=== PATIENT | male | born 1965 | race Caucasian/White ===

== ENCOUNTER 2018-05-18 19:51 | Inpatient (IN) | payer MEDICARE, MEDICAID ==
--- NOTE | 2018-05-18 20:39 | ED Physician Chart ---
ED Chief Complaint/HPI - Patient Information Date Seen:: 05/18/18 Time Seen:: 20:00 Chief Complaint:: agitation History of Present Illness:: 52 yr old male who was bib paramedics with agitation from senior living and was smearing stool over the mi pt minimally verbal previous stroke with contracted rue Vitals:: Vital Signs - 8 hr 05/18/18 20:00 Temp 97.7 F HR 79 RR 18 BP 124/77 O2 Sat % 94 Historian:: EMS, Medical Records ED Review of Systems - Review of Systems Eyes: No loss of vision Neck: No neck pain Cardio Vascular: No chest pain Pulmonary: No SOB GI: No vomiting Musculoskeletal: No back pain Psychiatric: Prior psych history (contracture RUE), Anxiety Hematopoietic: No bruising Allergic/Immuno: No urticaria Neurological: No syncope ED Past Medical History - Past Medical History Past Medical History: Other (SEE PREVIOUS NOTES) ED Physical Exam - Physical Examination General/Constitutional: No distress Skin: No rash Respiratory: Nl effort/Exclusion Cardio Vascular: RRR GI: No tenderness/rebounding/guarding Extremities: No tenderness or effusion ED Assessment - Assessment General Assessment: AGITATION PSYCHOSIS FOR ADMISSION ED Septic Shock - . Is Septic Shock (SBP<90, OR Lactate>4 mmol\L) present?: No - <6hrs of presentation: Vital Signs: Vital Signs - 8 hr 05/18/18 20:00 Temp 97.7 F HR 79 RR 18 BP 124/77 O2 Sat % 94 ED Reassessment (Disposition) - Reassessment Reassessment Condition:: Unchanged - Diagnosis Diagnosis:: PSYCHOSIS - Patient Disposition Discharge/Transfer:: Acute Care w/in this hosp
[2018-05-18 21:39] LABS: % BASOPHILS 0.4 % (0.0-2.0); % EOSINOPHILS 1.8 % (0.0-5.0); % LYMPHOCYTES 26.9 % (20.0-50.0); % MONOCYTES 7.5 % (2.0-10.0); % NEUTROPHILS 63.4 % (40.0-80.0); EOSINOPHILE ABSOLUTE 0.1 Th/cmm (0.1-0.4); HEMATOCRIT 44.9 % (41.0-60); HEMOGLOBIN 14.8 gm/dL (12-16); LYMPHOCYTE ABSOLUTE 2.2 Th/cmm (1.5-3.0); MEAN CELL VOLUME 89.4 fl (80-99); MEAN CORPUSCULAR HEMOGLOBIN 29.4 pg (26.0-30.0); MEAN CORPUSCULAR HGB CONC 32.9 pg (28.0-36.0); MEAN PLATELET VOLUME 7.9 fl; MONOCYTE ABSOLUTE 0.6 Th/cmm (0.3-1.0); NEUTROPHILE ABSOLUTE 5.4 Th/cmm (1.8-8.0); PLATELET COUNT 243 Th/cmm (150-400); RED BLOOD COUNT 5.02 Mil/cmm (4.30-5.70); RED CELL DISTRIBUTION WIDTH 13.2 % (11.5-20.0); WHITE BLOOD COUNT 8.3 Th/cmm (4.8-10.8)
[2018-05-18 21:54] LABS: ALB/GLOB RATIO 1.6 (1.0-1.8); ALBUMIN 4.2 gm/dL (4.2-5.5); ALKALINE PHOSPHATASE 140 U/L (34-104); ANION GAP 12.3 (7.0-16.0); BILIRUBIN,TOTAL 0.4 mg/dL (0.3-1.0); BUN - UREA NITROGEN 14 mg/dL (7-25); CALCIUM SERUM 9.3 mg/dL (8.6-10.3); CARBON DIOXIDE 22.6 mEq/L (21.0-31.0); CHLORIDE 108 mEq/L (98-107); CREATININE - SERUM 0.9 mg/dL (0.7-1.3); GFR AFRICAN-AMERICAN > 60.0 ml/min (>90); GFR NON AFRICAN-AMERICAN > 60.0 ml/min; GLUCOSE 99 mg/dL (70-105); POTASSIUM SERUM 3.9 mEq/L (3.5-5.1); SGOT 14 U/L (13-39); SGPT/ALT 6 U/L (7-52); SODIUM SERUM 139 mEq/L (136-145); TOTAL PROTEIN,SERUM 6.8 gm/dL (6.0-8.3)
[2018-05-18 23:44] VITALS: BP 120/78
[2018-05-18] MEDS ORDERED: Magnesium Hydroxide (MOM) 30 mL UDC PO PRN (23:44)
[2018-05-19] MEDS ORDERED: Polyvinyl Alcohol Ophth Soln 15 mL Bottle EACH EYE PRN (00:22)
[2018-05-19] MEDS: Multivitamin w/ Minerals Tab PO SCH (09:13)
--- NOTE | 2018-05-19 09:47 | Diagnostic Imaging Report ---
Exam: Portable chest x-ray HISTORY: Shortness of breath Exam is: None Findings: Portable examination of chest at 2117 hours reviewed. The study demonstrates left basilar atelectasis early infiltrate cannot be excluded. The costophrenic angles are clear bony thorax intact. Mediastinal structures midline. Impression: Left basilar atelectasis, question early infiltrate follow-up exam is recommended.
--- NOTE | 2018-05-19 14:18 | History & Physical ---
ADMIT DATE: 05/19/2018 HISTORY OF PRESENT ILLNESS: This is a 52-year-old male who was admitted from shelter facility to the Emergency Room due to increased agitation and smearing of feces to the staffs in the facility. REVIEW OF SYSTEMS: GENERAL: This is a 52-year-old male that appears as stated, no fever, no chills. HEENT: Head: No headache. No dizziness. Eyes: No eye pain. No visual loss. NECK: No neck pain. No nuchal rigidity. CHEST: No chest pain. No palpitation. PULMONARY: No shortness of breath. No coughing. GASTROINTESTINAL: No diarrhea. No vomiting. No constipation. MUSCULOSKELETAL: No joint pain or back pain. SOCIAL HISTORY: The patient lives in a shelter facility prior to hospitalization. PAST MEDICAL HISTORY: Includes Parkinson disease, vitamin D deficiency, gastroesophageal reflux disease, hyperlipidemia, history of CVA. FAMILY HISTORY: Unremarkable. PAST SURGICAL HISTORY: Unremarkable. PSYCHIATRIC HISTORY: Includes anxiety. PHYSICAL EXAMINATION: VITAL SIGNS: Temperature 98, heart rate 75, blood pressure 120/78, respiration of 18, 98% on room air. HEENT: Head is atraumatic, normocephalic. Eyes: Bilateral conjunctivae are clear. Bilateral pupils equal, round and reactive. NECK: Supple. No JVD. CARDIOVASCULAR: S1 and S2, without murmur. PULMONARY: Clear to auscultation. GASTROINTESTINAL: Soft and nontender without guarding. Positive bowel sounds. MUSCULOSKELETAL: No clubbing. No cyanosis noted. The patient has a contracted right upper extremity noted. ASSESSMENT: 1. Psychosis. 2. Parkinson disease. 3. Vitamin D deficiency. 4. Gastroesophageal reflux disease. 5. Hyperlipidemia. 6. Insomnia. PLAN: We will keep the patient in senior mental health unit. We will follow up with a psychiatrist to monitor the patient's condition and behavior. Treatment plans were discussed with the patient's nurse. Treatment plans were discussed with Dr. Bee. JOB# [id number]
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
[2018-05-20] MEDS: Multivitamin w/ Minerals Tab PO SCH (09:16)
--- NOTE | 2018-05-20 11:18 | General Progress Note ---
Subjective - Review of Systems Events since last encounter: patient awake and confused irritable no fever , no pain Objective - Results Result Diagrams: 05/18/18 21:20 05/18/18 21:20 Recent Labs: Laboratory Last Values WBC 8.3 Th/cmm (4.8-10.8) 05/18/18 21:20 RBC 5.02 Mil/cmm (4.30-5.70) 05/18/18 21:20 Hgb 14.8 gm/dL (12-16) 05/18/18 21:20 Hct 44.9 % (41.0-60) 05/18/18 21:20 MCV 89.4 fl (80-99) 05/18/18 21:20 MCH 29.4 pg (26.0-30.0) 05/18/18 21:20 MCHC Differential 32.9 pg (28.0-36.0) 05/18/18 21:20 RDW 13.2 % (11.5-20.0) 05/18/18 21:20 Plt Count 243 Th/cmm (150-400) 05/18/18 21:20 MPV 7.9 fl 05/18/18 21:20 Neutrophils % 63.4 % (40.0-80.0) 05/18/18 21:20 Lymphocytes % 26.9 % (20.0-50.0) 05/18/18 21:20 Monocytes % 7.5 % (2.0-10.0) 05/18/18 21:20 Eosinophils % 1.8 % (0.0-5.0) 05/18/18 21:20 Basophils % 0.4 % (0.0-2.0) 05/18/18 21:20 Sodium 139 mEq/L (136-145) 05/18/18 21:20 Potassium 3.9 mEq/L (3.5-5.1) 05/18/18 21:20 Chloride 108 mEq/L (98-107) H 05/18/18 21:20 Carbon Dioxide 22.6 mEq/L (21.0-31.0) 05/18/18 21:20 Anion Gap 12.3 (7.0-16.0) 05/18/18 21:20 BUN 14 mg/dL (7-25) 05/18/18 21:20 Creatinine 0.9 mg/dL (0.7-1.3) 05/18/18 21:20 Est GFR ( Amer) > 60.0 ml/min (>90) 05/18/18 21:20 Est GFR (Non-Af Amer) > 60.0 ml/min 05/18/18 21:20 BUN/Creatinine Ratio 15.6 05/18/18 21:20 Glucose 99 mg/dL (70-105) 05/18/18 21:20 Calcium 9.3 mg/dL (8.6-10.3) 05/18/18 21:20 Total Bilirubin 0.4 mg/dL (0.3-1.0) 05/18/18 21:20 AST 14 U/L (13-39) 05/18/18 21:20 ALT 6 U/L (7-52) L 05/18/18 21:20 Alkaline Phosphatase 140 U/L (34-104) H 05/18/18 21:20 Total Protein 6.8 gm/dL (6.0-8.3) 05/18/18 21:20 Albumin 4.2 gm/dL (4.2-5.5) 05/18/18 21:20 Globulin 2.6 gm/dL 05/18/18 21:20 Albumin/Globulin Ratio 1.6 (1.0-1.8) 05/18/18 21:20 - Physical Exam Vitals and I&O: Vital Signs Temp 97.4 F 05/19/18 17:30 Pulse 76 05/19/18 17:30 Resp 18 05/19/18 19:37 BP 102/82 05/19/18 17:30 Pulse Ox 95 05/19/18 17:30 Intake & Output 05/19/18 05/20/18 05/20/18 18:59 06:59 18:59 Intake Total 1200 Balance 1200 Intake: Oral 1200 Other: # Voids 3 # Bowel Movements 1 Active Medications: Current Medications Acetaminophen (Tylenol) 650 mg PO Q6H PRN PRN Reason: Pain (Mild) Stop: 07/17/18 23:43 Amantadine HCl (Symmetrel) 100 mg PO TID [facility] Stop: 07/18/18 08:59 Last Admin: 05/20/18 09:16 Dose: 100 mg Artificial Tears (Artificial Tears Ophth Soln) 1 drop EACH EYE DAILY PRN PRN Reason: Dry Eye Stop: 07/18/18 00:21 Carbidopa/Levodopa (Sinemet 25mg-100 Mg) 1 tab PO TID [facility] Stop: 07/18/18 08:59 Last Admin: 05/20/18 09:16 Dose: 1 tab Cholecalciferol (Vitamin D3) 1,000 iu PO DAILY [facility]STIE Stop: 07/18/18 08:59 Last Admin: 05/20/18 09:16 Dose: 1,000 iu Docusate Sodium (Colace) 100 mg PO BID [facility] Stop: 07/18/18 08:59 Last Admin: 05/20/18 09:16 Dose: 100 mg Famotidine (Pepcid) mg PO AC [facility] Stop: 07/18/18 07:29 Lorazepam (Ativan) 0.5 mg PO Q6HR PRN; Protocol PRN Reason: Agitation Stop: 07/18/18 00:02 Magnesium Hydroxide (Milk Of Magnesia) 30 ml PO DAILY PRN PRN Reason: Constipation Stop: 07/17/18 23:43 Senna (Senna) 8.6 mg PO BID [facility] Stop: 07/18/18 08:59 Last Admin: 05/20/18 09:16 Dose: 8.6 mg Simvastatin (Zocor) 20 mg PO DAILY [facility]; Protocol Stop: 07/18/18 08:59 Last Admin: 05/20/18 09:16 Dose: 20 mg Tolterodine Tartrate (Detrol) 1 mg PO BID [facility] Stop: 07/18/18 08:59 Last Admin: 05/20/18 09:15 Dose: 1 mg Trazodone HCl (Desyrel) mg PO HS [facility]; Protocol Stop: 07/18/18 20:59 Zolpidem Tartrate (Ambien) 5 mg PO HS PRN PRN Reason: Insomnia Stop: 07/18/18 00:01 General: No acute distress HEENT: Atraumatic Neck: Supple Cardiovascular: Regular rate, Normal S1, Normal S2 Lungs: Clear to auscultation Abdomen: Bowel sounds Assessment/Plan - Problem List Patient Problems: All Active Problems GERD (gastroesophageal reflux disease) (Acute) K21.9 Hyperlipidemia (Acute) E78.5 Insomnia (Acute) G47.00 Parkinson disease (Acute) G20 Psychosis (Acute) F29 Vitamin D deficiency (Acute) E55.9 - Assessment Assessment: as per psych will monitor
--- NOTE | 2018-05-20 19:43 | Progress Notes ---
DATE: 05/20/2018 SUBJECTIVE: Staff was spoken to. The patient is interviewed. Mood is noted to be irritable. Affect is constricted. Coping skills are noted to be very poor. The patient has been getting easily frustrated and agitated. The patient could be redirected at this time. Aggressive behavior and the disruptive behavior that was displayed at the shelter is not evident at this time. The patient is going to be closely monitored and the patient's family is going to be kept informed about the patient's behavior. ASSESSMENT: The patient is still impulsive. PLAN: To continue the patient with the supportive therapy and followup. JOB# [id number]
[2018-05-21] MEDS: Multivitamin w/ Minerals Tab PO SCH (09:30)
--- NOTE | 2018-05-21 16:19 | General Progress Note ---
Subjective - Review of Systems Events since last encounter: patient awake confused Objective - Results Result Diagrams: 05/18/18 21:20 05/18/18 21:20 Recent Labs: Laboratory Last Values WBC 8.3 Th/cmm (4.8-10.8) 05/18/18 21:20 RBC 5.02 Mil/cmm (4.30-5.70) 05/18/18 21:20 Hgb 14.8 gm/dL (12-16) 05/18/18 21:20 Hct 44.9 % (41.0-60) 05/18/18 21:20 MCV 89.4 fl (80-99) 05/18/18 21:20 MCH 29.4 pg (26.0-30.0) 05/18/18 21:20 MCHC Differential 32.9 pg (28.0-36.0) 05/18/18 21:20 RDW 13.2 % (11.5-20.0) 05/18/18 21:20 Plt Count 243 Th/cmm (150-400) 05/18/18 21:20 MPV 7.9 fl 05/18/18 21:20 Neutrophils % 63.4 % (40.0-80.0) 05/18/18 21:20 Lymphocytes % 26.9 % (20.0-50.0) 05/18/18 21:20 Monocytes % 7.5 % (2.0-10.0) 05/18/18 21:20 Eosinophils % 1.8 % (0.0-5.0) 05/18/18 21:20 Basophils % 0.4 % (0.0-2.0) 05/18/18 21:20 Sodium 139 mEq/L (136-145) 05/18/18 21:20 Potassium 3.9 mEq/L (3.5-5.1) 05/18/18 21:20 Chloride 108 mEq/L (98-107) H 05/18/18 21:20 Carbon Dioxide 22.6 mEq/L (21.0-31.0) 05/18/18 21:20 Anion Gap 12.3 (7.0-16.0) 05/18/18 21:20 BUN 14 mg/dL (7-25) 05/18/18 21:20 Creatinine 0.9 mg/dL (0.7-1.3) 05/18/18 21:20 Est GFR ( Amer) > 60.0 ml/min (>90) 05/18/18 21:20 Est GFR (Non-Af Amer) > 60.0 ml/min 05/18/18 21:20 BUN/Creatinine Ratio 15.6 05/18/18 21:20 Glucose 99 mg/dL (70-105) 05/18/18 21:20 Calcium 9.3 mg/dL (8.6-10.3) 05/18/18 21:20 Total Bilirubin 0.4 mg/dL (0.3-1.0) 05/18/18 21:20 AST 14 U/L (13-39) 05/18/18 21:20 ALT 6 U/L (7-52) L 05/18/18 21:20 Alkaline Phosphatase 140 U/L (34-104) H 05/18/18 21:20 Total Protein 6.8 gm/dL (6.0-8.3) 05/18/18 21:20 Albumin 4.2 gm/dL (4.2-5.5) 05/18/18 21:20 Globulin 2.6 gm/dL 05/18/18 21:20 Albumin/Globulin Ratio 1.6 (1.0-1.8) 05/18/18 21:20 - Physical Exam Vitals and I&O: Vital Signs Temp 98.1 F 05/21/18 14:45 Pulse 92 05/21/18 14:45 Resp 20 05/21/18 14:45 BP 127/82 05/21/18 14:45 Pulse Ox 93 05/21/18 14:45 Intake & Output 05/20/18 05/21/18 05/21/18 18:59 06:59 18:59 Intake Total 1300 360 Balance 1300 360 Intake: Oral 1300 360 Other: # Voids 3 2 # Bowel Movements 0 0 Active Medications: Current Medications Acetaminophen (Tylenol) 650 mg PO Q6H PRN PRN Reason: Pain (Mild) Stop: 07/17/18 23:43 Amantadine HCl (Symmetrel) 100 mg PO TID [facility] Stop: 07/18/18 08:59 Last Admin: 05/21/18 14:43 Dose: 100 mg Artificial Tears (Artificial Tears Ophth Soln) 1 drop EACH EYE DAILY PRN PRN Reason: Dry Eye Stop: 07/18/18 00:21 Carbidopa/Levodopa (Sinemet 25mg-100 Mg) 1 tab PO TID [facility] Stop: 07/18/18 08:59 Last Admin: 05/21/18 14:43 Dose: 1 tab Cholecalciferol (Vitamin D3) 1,000 iu PO DAILY [facility] Stop: 07/18/18 08:59 Last Admin: 05/21/18 09:30 Dose: 1,000 iu Docusate Sodium (Colace) 100 mg PO BID [facility] Stop: 07/18/18 08:59 Last Admin: 05/21/18 09:30 Dose: 100 mg Famotidine (Pepcid) 20 mg PO AC [facility] Stop: 07/18/18 07:29 Lorazepam (Ativan) 0.5 mg PO Q6HR PRN; Protocol PRN Reason: Agitation Stop: 07/18/18 00:02 Magnesium Hydroxide (Milk Of Magnesia) 30 ml PO DAILY PRN PRN Reason: Constipation Stop: 07/17/18 23:43 Senna (Senna) 8.6 mg PO BID [facility] Stop: 07/18/18 08:59 Last Admin: 05/21/18 09:31 Dose: 8.6 mg Simvastatin (Zocor) 20 mg PO DAILY [facility]; Protocol Stop: 07/18/18 08:59 Last Admin: 05/21/18 09:31 Dose: 20 mg Tolterodine Tartrate (Detrol) 1 mg PO BID [facility] Stop: 07/18/18 08:59 Last Admin: 05/21/18 09:30 Dose: 1 mg Trazodone HCl (Desyrel) 50 mg PO HS [facility]; Protocol Stop: 07/18/18 20:59 Last Admin: 05/20/18 21:17 Dose: 50 mg Zolpidem Tartrate (Ambien) 5 mg PO HS PRN PRN Reason: Insomnia Stop: 07/18/18 00:01 General: No acute distress HEENT: Atraumatic Neck: Supple Cardiovascular: Regular rate, Normal S1, Normal S2 Lungs: Clear to auscultation Abdomen: Bowel sounds Assessment/Plan - Problem List Patient Problems: All Active Problems GERD (gastroesophageal reflux disease) (Acute) K21.9 Hyperlipidemia (Acute) E78.5 Insomnia (Acute) G47.00 Parkinson disease (Acute) G20 Psychosis (Acute) F29 Vitamin D deficiency (Acute) E55.9 - Assessment Assessment: as per psych will monitor
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
--- NOTE | 2018-05-22 02:17 | Progress Notes ---
DATE: 05/21/2018 SUBJECTIVE: Staff was spoken to. The patient is interviewed. Mood is noted to be irritable. Affect is constricted. Insight and judgment are noted to be still impaired. Impulse control is noted to be poor. Coping skills are noted to be very poor. The patient is currently on trazodone 50 mg at bedtime to help with the insomnia. The patient is being closely monitored for his aggressive behavior, no disruptive behavior is reported today. No side effects to the medications are noted. ASSESSMENT: The patient is still impulsive. PLAN: To continue the patient with the supportive therapy. I encouraged the patient to verbalize the concerns rather than to act out. JOB# [id number]
[2018-05-22] MEDS: Multivitamin w/ Minerals Tab PO SCH (09:29)
--- NOTE | 2018-05-22 20:28 | General Progress Note ---
Subjective - Review of Systems Service Date: 05/22/18 Subjective: nad Objective - Results Result Diagrams: 05/18/18 21:20 05/18/18 21:20 Recent Labs: Laboratory Last Values WBC 8.3 Th/cmm (4.8-10.8) 05/18/18 21:20 RBC 5.02 Mil/cmm (4.30-5.70) 05/18/18 21:20 Hgb 14.8 gm/dL (12-16) 05/18/18 21:20 Hct 44.9 % (41.0-60) 05/18/18 21:20 MCV 89.4 fl (80-99) 05/18/18 21:20 MCH 29.4 pg (26.0-30.0) 05/18/18 21:20 MCHC Differential 32.9 pg (28.0-36.0) 05/18/18 21:20 RDW 13.2 % (11.5-20.0) 05/18/18 21:20 Plt Count 243 Th/cmm (150-400) 05/18/18 21:20 MPV 7.9 fl 05/18/18 21:20 Neutrophils % 63.4 % (40.0-80.0) 05/18/18 21:20 Lymphocytes % 26.9 % (20.0-50.0) 05/18/18 21:20 Monocytes % 7.5 % (2.0-10.0) 05/18/18 21:20 Eosinophils % 1.8 % (0.0-5.0) 05/18/18 21:20 Basophils % 0.4 % (0.0-2.0) 05/18/18 21:20 Sodium 139 mEq/L (136-145) 05/18/18 21:20 Potassium 3.9 mEq/L (3.5-5.1) 05/18/18 21:20 Chloride 108 mEq/L (98-107) H 05/18/18 21:20 Carbon Dioxide 22.6 mEq/L (21.0-31.0) 05/18/18 21:20 Anion Gap 12.3 (7.0-16.0) 05/18/18 21:20 BUN 14 mg/dL (7-25) 05/18/18 21:20 Creatinine 0.9 mg/dL (0.7-1.3) 05/18/18 21:20 Est GFR ( Amer) > 60.0 ml/min (>90) 05/18/18 21:20 Est GFR (Non-Af Amer) > 60.0 ml/min 05/18/18 21:20 BUN/Creatinine Ratio 15.6 05/18/18 21:20 Glucose 99 mg/dL (70-105) 05/18/18 21:20 Calcium 9.3 mg/dL (8.6-10.3) 05/18/18 21:20 Total Bilirubin 0.4 mg/dL (0.3-1.0) 05/18/18 21:20 AST 14 U/L (13-39) 05/18/18 21:20 ALT 6 U/L (7-52) L 05/18/18 21:20 Alkaline Phosphatase 140 U/L (34-104) H 05/18/18 21:20 Total Protein 6.8 gm/dL (6.0-8.3) 05/18/18 21:20 Albumin 4.2 gm/dL (4.2-5.5) 05/18/18 21:20 Globulin 2.6 gm/dL 05/18/18 21:20 Albumin/Globulin Ratio 1.6 (1.0-1.8) 05/18/18 21:20 - Physical Exam Vitals and I&O: Vital Signs Temp 98.3 F 05/22/18 20:20 Pulse 89 05/22/18 20:20 Resp 19 05/22/18 20:20 BP 116/75 05/22/18 20:20 Pulse Ox 95 05/22/18 20:20 Intake & Output 05/22/18 05/22/18 05/23/18 06:59 18:59 06:59 Intake Total 240 1300 240 Balance 240 1300 240 Intake: Oral 240 1300 240 Other: # Voids 2 3 1 # Bowel Movements 1 Active Medications: Current Medications Acetaminophen (Tylenol) 650 mg PO Q6H PRN PRN Reason: Pain (Mild) Stop: 07/17/18 23:43 Amantadine HCl (Symmetrel) 100 mg PO TID KRISTIE Stop: 07/18/18 08:59 Last Admin: 05/22/18 13:39 Dose: 100 mg Artificial Tears (Artificial Tears Ophth Soln) 1 drop EACH EYE DAILY PRN PRN Reason: Dry Eye Stop: 07/18/18 00:21 Carbidopa/Levodopa (Sinemet 25mg-100 Mg) 1 tab PO TID [facility] Stop: 07/18/18 08:59 Last Admin: 05/22/18 13:39 Dose: 1 tab Cholecalciferol (Vitamin D3) 1,000 iu PO DAILY KRISTIE Stop: 07/18/18 08:59 Last Admin: 05/22/18 09:29 Dose: 1,000 iu Docusate Sodium (Colace) 100 mg PO BID KRISTIE Stop: 07/18/18 08:59 Last Admin: 05/22/18 17:11 Dose: 100 mg Famotidine (Pepcid) 20 mg PO AC [facility] Stop: 07/18/18 07:29 Last Admin: 05/22/18 17:11 Dose: 20 mg Lorazepam (Ativan) 0.5 mg PO Q6HR PRN; Protocol PRN Reason: Agitation Stop: 07/18/18 00:02 Magnesium Hydroxide (Milk Of Magnesia) 30 ml PO DAILY PRN PRN Reason: Constipation Stop: 07/17/18 23:43 Senna (Senna) 8.6 mg PO BID [facility] Stop: 07/18/18 08:59 Last Admin: 05/22/18 17:11 Dose: 8.6 mg Simvastatin (Zocor) 20 mg PO DAILY [facility]; Protocol Stop: 07/18/18 08:59 Last Admin: 05/22/18 09:29 Dose: 20 mg Tolterodine Tartrate (Detrol) 1 mg PO BID [facility] Stop: 07/18/18 08:59 Last Admin: 05/22/18 17:11 Dose: 1 mg Trazodone HCl (Desyrel) 50 mg PO HS [facility]; Protocol Stop: 07/18/18 20:59 Last Admin: 05/21/18 21:20 Dose: 50 mg Zolpidem Tartrate (Ambien) 5 mg PO HS PRN PRN Reason: Insomnia Stop: 07/18/18 00:01 General: No acute distress HEENT: Atraumatic Neck: Supple Cardiovascular: Regular rate, Normal S1, Normal S2 Lungs: Clear to auscultation Abdomen: Bowel sounds Assessment/Plan - Problem List Patient Problems: All Active Problems GERD (gastroesophageal reflux disease) (Acute) K21.9 Hyperlipidemia (Acute) E78.5 Insomnia (Acute) G47.00 Parkinson disease (Acute) G20 Psychosis (Acute) F29 Vitamin D deficiency (Acute) E55.9 - Assessment Assessment: as per psych will monitor Nutritional Asmnt/Malnutr-PDOC - Dietary Evaluation Malnutrition Findings (Please click <Entered> for more info): Nutritional Asmnt/Malnutrition Start: 05/22/18 16: 01 Text: Status: Complete Freq: Protocol: Document 05/22/18 16:01 ESPINOZA (Rec: 05/22/18 16:06 ESPINOZA [email or web address]) Nutritional Asmnt/Malnutrition Patient General Information Nutritional Screening Moderate Risk Diagnosis psychosis Pertinent Medical Hx/Surgical Hx parkinson, vit D deficiency, GERD, hyperlipidemia, CVA Subjective Information Pt seen eating lunch in his room at time of visit. per EMR, PO intake 75-100% of meals. Current Diet Order/ Nutrition Support MANUEL Pertinent Medications vit D3, volace, pepcid, senna Pertinent Labs 05/18 Cl 108, glucose 99 Nutritional Hx/Data Height 1.78 m Height (Calculated Centimeters) 177.8 Current Weight (lbs) 83.915 kg Weight (Calculated Kilograms) 83.9 Weight (Calculated Grams) 01848.6 Max Body Weight 166 Body Mass Index (BMI) 26.5 Weight Status Overweight GI Symptoms GI Symptoms None Last BM 05/19 Difficult in: None Skin Integrity/Comment: intact Current %PO Good (75-100%) Estimated Nutritional Goals BEE in Kcals: Using Current wt Calories/Kcals/Kg 23-27 Kcals Calculated 6462-9056 Protein: Using Current wt Protein g/k Protein Calculated 84 Fluid: ml 1932-2268ml (1ml/kcal) Nutritional Problem No current Nutrition Prob Problem N/A Malnutrition Alert Is there a minimum of two criteria No selected? Query Text:Check all the applicable criteria. A minimum of two criteria are recommended for diagnosis of either severe or non-severe malnutrition. Malnutrition Related to Morbid Obesity Malnutrition related to morbid obesity No Intervention/Recommendation Comments 1. Continue with MANUEL diet as ordered. 2. Monitor PO intake, wt, labs and skin integrity 3. F/U as low risk in 7 days, 05/29 Expected Outcomes/Goals Expected Outcomes/Goals 1. PO intake to meet at least 75% of nutritional needs. 2. Wt stability, skin to remain intact, labs to approach WNL.
--- NOTE | 2018-05-23 09:24 | General Progress Note ---
Subjective - Review of Systems Events since last encounter: no change no distress Subjective: nad Objective - Results Result Diagrams: 05/18/18 21:20 05/18/18 21:20 Recent Labs: Laboratory Last Values WBC 8.3 Th/cmm (4.8-10.8) 05/18/18 21:20 RBC 5.02 Mil/cmm (4.30-5.70) 05/18/18 21:20 Hgb 14.8 gm/dL (12-16) 05/18/18 21:20 Hct 44.9 % (41.0-60) 05/18/18 21:20 MCV 89.4 fl (80-99) 05/18/18 21:20 MCH 29.4 pg (26.0-30.0) 05/18/18 21:20 MCHC Differential 32.9 pg (28.0-36.0) 05/18/18 21:20 RDW 13.2 % (11.5-20.0) 05/18/18 21:20 Plt Count 243 Th/cmm (150-400) 05/18/18 21:20 MPV 7.9 fl 05/18/18 21:20 Neutrophils % 63.4 % (40.0-80.0) 05/18/18 21:20 Lymphocytes % 26.9 % (20.0-50.0) 05/18/18 21:20 Monocytes % 7.5 % (2.0-10.0) 05/18/18 21:20 Eosinophils % 1.8 % (0.0-5.0) 05/18/18 21:20 Basophils % 0.4 % (0.0-2.0) 05/18/18 21:20 Sodium 139 mEq/L (136-145) 05/18/18 21:20 Potassium 3.9 mEq/L (3.5-5.1) 05/18/18 21:20 Chloride 108 mEq/L (98-107) H 05/18/18 21:20 Carbon Dioxide 22.6 mEq/L (21.0-31.0) 05/18/18 21:20 Anion Gap 12.3 (7.0-16.0) 05/18/18 21:20 BUN 14 mg/dL (7-25) 05/18/18 21:20 Creatinine 0.9 mg/dL (0.7-1.3) 05/18/18 21:20 Est GFR ( Amer) > 60.0 ml/min (>90) 05/18/18 21:20 Est GFR (Non-Af Amer) > 60.0 ml/min 05/18/18 21:20 BUN/Creatinine Ratio 15.6 05/18/18 21:20 Glucose 99 mg/dL (70-105) 05/18/18 21:20 Calcium 9.3 mg/dL (8.6-10.3) 05/18/18 21:20 Total Bilirubin 0.4 mg/dL (0.3-1.0) 05/18/18 21:20 AST 14 U/L (13-39) 05/18/18 21:20 ALT 6 U/L (7-52) L 05/18/18 21:20 Alkaline Phosphatase 140 U/L (34-104) H 05/18/18 21:20 Total Protein 6.8 gm/dL (6.0-8.3) 05/18/18 21:20 Albumin 4.2 gm/dL (4.2-5.5) 05/18/18 21:20 Globulin 2.6 gm/dL 05/18/18 21:20 Albumin/Globulin Ratio 1.6 (1.0-1.8) 05/18/18 21:20 - Physical Exam Vitals and I&O: Vital Signs Temp 98.5 F 05/23/18 05:40 Pulse 81 05/23/18 05:40 Resp 19 05/23/18 05:40 BP 110/79 05/23/18 05:40 Pulse Ox 97 05/23/18 05:40 Intake & Output 05/22/18 05/23/18 05/23/18 18:59 06:59 18:59 Intake Total 1300 360 Balance 1300 360 Intake: Oral 1300 360 Other: # Voids 3 2 # Bowel Movements 1 0 Active Medications: Current Medications Acetaminophen (Tylenol) 650 mg PO Q6H PRN PRN Reason: Pain (Mild) Stop: 07/17/18 23:43 Amantadine HCl (Symmetrel) 100 mg PO TID [facility] Stop: 07/18/18 08:59 Last Admin: 05/22/18 21:20 Dose: 100 mg Artificial Tears (Artificial Tears Ophth Soln) 1 drop EACH EYE DAILY PRN PRN Reason: Dry Eye Stop: 07/18/18 00:21 Carbidopa/Levodopa (Sinemet 25mg-100 Mg) 1 tab PO TID [facility] Stop: 07/18/18 08:59 Last Admin: 05/22/18 21:20 Dose: 1 tab Cholecalciferol (Vitamin D3) 1,000 iu PO DAILY [facility] Stop: 07/18/18 08:59 Last Admin: 05/22/18 09:29 Dose: 1,000 iu Docusate Sodium (Colace) 100 mg PO BID [facility] Stop: 07/18/18 08:59 Last Admin: 05/22/18 17:11 Dose: 100 mg Famotidine (Pepcid) 20 mg PO AC [facility] Stop: 07/18/18 07:29 Last Admin: 05/23/18 06:33 Dose: 20 mg Lorazepam (Ativan) 0.5 mg PO Q6HR PRN; Protocol PRN Reason: Agitation Stop: 07/18/18 00:02 Magnesium Hydroxide (Milk Of Magnesia) 30 ml PO DAILY PRN PRN Reason: Constipation Stop: 07/17/18 23:43 Senna (Senna) 8.6 mg PO BID [facility] Stop: 07/18/18 08:59 Last Admin: 05/22/18 17:11 Dose: 8.6 mg Simvastatin (Zocor) 20 mg PO DAILY [facility]; Protocol Stop: 07/18/18 08:59 Last Admin: 05/22/18 09:29 Dose: 20 mg Tolterodine Tartrate (Detrol) 1 mg PO BID [facility] Stop: 07/18/18 08:59 Last Admin: 05/22/18 17:11 Dose: 1 mg Trazodone HCl (Desyrel) 50 mg PO HS [facility]; Protocol Stop: 07/18/18 20:59 Last Admin: 05/22/18 21:20 Dose: 50 mg Zolpidem Tartrate (Ambien) 5 mg PO HS PRN PRN Reason: Insomnia Stop: 07/18/18 00:01 General: No acute distress HEENT: Atraumatic Neck: Supple Cardiovascular: Regular rate, Normal S1, Normal S2 Lungs: Clear to auscultation Abdomen: Bowel sounds Assessment/Plan - Problem List Patient Problems: All Active Problems GERD (gastroesophageal reflux disease) (Acute) K21.9 Hyperlipidemia (Acute) E78.5 Insomnia (Acute) G47.00 Parkinson disease (Acute) G20 Psychosis (Acute) F29 Vitamin D deficiency (Acute) E55.9 - Assessment Assessment: as per psych will monitor Nutritional Asmnt/Malnutr-PDOC - Dietary Evaluation Malnutrition Findings (Please click <Entered> for more info): Nutritional Asmnt/Malnutrition Start: 05/22/18 16: 01 Text: Status: Complete Freq: Protocol: Document 05/22/18 16:01 KENTON (Rec: 05/22/18 16:06 ESPINOZA [email or web address]) Nutritional Asmnt/Malnutrition Patient General Information Nutritional Screening Moderate Risk Diagnosis psychosis Pertinent Medical Hx/Surgical Hx parkinson, vit D deficiency, GERD, hyperlipidemia, CVA Subjective Information Pt seen eating lunch in his room at time of visit. per EMR, PO intake 75-100% of meals. Current Diet Order/ Nutrition Support MANUEL Pertinent Medications vit D3, volace, pepcid, senna Pertinent Labs 05/18 Cl 108, glucose 99 Nutritional Hx/Data Height 1.78 m Height (Calculated Centimeters) 177.8 Current Weight (lbs) 83.915 kg Weight (Calculated Kilograms) 83.9 Weight (Calculated Grams) 20324.6 [place] Body Weight 166 Body Mass Index (BMI) 26.5 Weight Status Overweight GI Symptoms GI Symptoms None Last BM 05/19 Difficult in: None Skin Integrity/Comment: intact Current %PO Good (75-100%) Estimated Nutritional Goals BEE in Kcals: Using Current wt Calories/Kcals/Kg 23-27 Kcals Calculated 4473-4798 Protein: Using Current wt Protein g/k Protein Calculated 84 Fluid: ml 1932-2268ml (1ml/kcal) Nutritional Problem No current Nutrition Prob Problem N/A Malnutrition Alert Is there a minimum of two criteria No selected? Query Text:Check all the applicable criteria. A minimum of two criteria are recommended for diagnosis of either severe or non-severe malnutrition. Malnutrition Related to Morbid Obesity Malnutrition related to morbid obesity No Intervention/Recommendation Comments 1. Continue with MANUEL diet as ordered. 2. Monitor PO intake, wt, labs and skin integrity 3. F/U as low risk in 7 days, 05/29 Expected Outcomes/Goals Expected Outcomes/Goals 1. PO intake to meet at least 75% of nutritional needs. 2. Wt stability, skin to remain intact, labs to approach WNL.
[2018-05-23] MEDS: Multivitamin w/ Minerals Tab PO SCH (09:51)
--- NOTE | 2018-05-23 23:35 | Progress Notes ---
DATE: 05/23/2018 PSYCHIATRIC PROGRESS NOTE SUBJECTIVE: Staff was spoken to. The patient is interviewed. Mood is noted to be irritable. Affect is constricted. Coping skills at this time are noted to be very poor. The patient is still very disruptive and has been trying to ____. The patient needs to be redirected. The patient is being closely monitored. No side effects to the medications are noted. ASSESSMENT: The patient is impulsive. PLAN: To continue ____. JOB# [id number]
[2018-05-24] MEDS: Multivitamin w/ Minerals Tab PO SCH (08:47)
--- NOTE | 2018-05-24 16:30 | General Progress Note ---
Subjective - Review of Systems Subjective: nad Objective - Results Result Diagrams: 05/18/18 21:20 05/18/18 21:20 Recent Labs: Laboratory Last Values WBC 8.3 Th/cmm (4.8-10.8) 05/18/18 21:20 RBC 5.02 Mil/cmm (4.30-5.70) 05/18/18 21:20 Hgb 14.8 gm/dL (12-16) 05/18/18 21:20 Hct 44.9 % (41.0-60) 05/18/18 21:20 MCV 89.4 fl (80-99) 05/18/18 21:20 MCH 29.4 pg (26.0-30.0) 05/18/18 21:20 MCHC Differential 32.9 pg (28.0-36.0) 05/18/18 21:20 RDW 13.2 % (11.5-20.0) 05/18/18 21:20 Plt Count 243 Th/cmm (150-400) 05/18/18 21:20 MPV 7.9 fl 05/18/18 21:20 Neutrophils % 63.4 % (40.0-80.0) 05/18/18 21:20 Lymphocytes % 26.9 % (20.0-50.0) 05/18/18 21:20 Monocytes % 7.5 % (2.0-10.0) 05/18/18 21:20 Eosinophils % 1.8 % (0.0-5.0) 05/18/18 21:20 Basophils % 0.4 % (0.0-2.0) 05/18/18 21:20 Sodium 139 mEq/L (136-145) 05/18/18 21:20 Potassium 3.9 mEq/L (3.5-5.1) 05/18/18 21:20 Chloride 108 mEq/L (98-107) H 05/18/18 21:20 Carbon Dioxide 22.6 mEq/L (21.0-31.0) 05/18/18 21:20 Anion Gap 12.3 (7.0-16.0) 05/18/18 21:20 BUN 14 mg/dL (7-25) 05/18/18 21:20 Creatinine 0.9 mg/dL (0.7-1.3) 05/18/18 21:20 Est GFR ( Amer) > 60.0 ml/min (>90) 05/18/18 21:20 Est GFR (Non-Af Amer) > 60.0 ml/min 05/18/18 21:20 BUN/Creatinine Ratio 15.6 05/18/18 21:20 Glucose 99 mg/dL (70-105) 05/18/18 21:20 Calcium 9.3 mg/dL (8.6-10.3) 05/18/18 21:20 Total Bilirubin 0.4 mg/dL (0.3-1.0) 05/18/18 21:20 AST 14 U/L (13-39) 05/18/18 21:20 ALT 6 U/L (7-52) L 05/18/18 21:20 Alkaline Phosphatase 140 U/L (34-104) H 05/18/18 21:20 Total Protein 6.8 gm/dL (6.0-8.3) 05/18/18 21:20 Albumin 4.2 gm/dL (4.2-5.5) 05/18/18 21:20 Globulin 2.6 gm/dL 05/18/18 21:20 Albumin/Globulin Ratio 1.6 (1.0-1.8) 05/18/18 21:20 - Physical Exam Vitals and I&O: Vital Signs Temp 98.1 F 05/24/18 14:00 Pulse 86 05/24/18 14:00 Resp 19 05/24/18 14:00 BP 113/76 05/24/18 14:00 Pulse Ox 100 05/24/18 14:00 Active Medications: Current Medications Acetaminophen (Tylenol) 650 mg PO Q6H PRN PRN Reason: Pain (Mild) Stop: 07/17/18 23:43 Amantadine HCl (Symmetrel) 100 mg PO TID [facility]ST[facility] Stop: 07/18/18 08:59 Last Admin: 05/24/18 15:25 Dose: 100 mg Artificial Tears (Artificial Tears Ophth Soln) 1 drop EACH EYE DAILY PRN PRN Reason: Dry Eye Stop: 07/18/18 00:21 Carbidopa/Levodopa (Sinemet 25mg-100 Mg) 1 tab PO TID [facility] Stop: 07/18/18 08:59 Last Admin: 05/24/18 15:25 Dose: 1 tab Cholecalciferol (Vitamin D3) 1,000 iu PO DAILY [facility] Stop: 07/18/18 08:59 Last Admin: 05/24/18 08:46 Dose: 1,000 iu Divalproex Sodium (Depakote Dr) 125 mg PO Q12HR [facility]; Protocol Stop: 07/23/18 20:59 Docusate Sodium (Colace) 100 mg PO BID [facility] Stop: 07/18/18 08:59 Last Admin: 05/24/18 08:47 Dose: 100 mg Famotidine (Pepcid) 20 mg PO AC [facility] Stop: 07/18/18 07:29 Last Admin: 05/24/18 11:58 Dose: Not Given Lorazepam (Ativan) 0.5 mg PO Q6HR PRN; Protocol PRN Reason: Agitation Stop: 07/18/18 00:02 Magnesium Hydroxide (Milk Of Magnesia) 30 ml PO DAILY PRN PRN Reason: Constipation Stop: 07/17/18 23:43 Senna (Senna) 8.6 mg PO BID [facility] Stop: 07/18/18 08:59 Last Admin: 05/24/18 08:45 Dose: 8.6 mg Simvastatin (Zocor) 20 mg PO DAILY [facility]; Protocol Stop: 07/18/18 08:59 Last Admin: 05/24/18 08:46 Dose: 20 mg Tolterodine Tartrate (Detrol) 1 mg PO BID [facility] Stop: 07/18/18 08:59 Last Admin: 05/24/18 08:46 Dose: 1 mg Trazodone HCl (Desyrel) 50 mg PO HS [facility]; Protocol Stop: 07/18/18 20:59 Last Admin: 05/23/18 20:51 Dose: 50 mg Zolpidem Tartrate (Ambien) 5 mg PO HS PRN PRN Reason: Insomnia Stop: 07/18/18 00:01 General: No acute distress HEENT: Atraumatic Neck: Supple Cardiovascular: Regular rate, Normal S1, Normal S2 Lungs: Clear to auscultation Abdomen: Bowel sounds Assessment/Plan - Problem List Patient Problems: All Active Problems GERD (gastroesophageal reflux disease) (Acute) K21.9 Hyperlipidemia (Acute) E78.5 Insomnia (Acute) G47.00 Parkinson disease (Acute) G20 Psychosis (Acute) F29 Vitamin D deficiency (Acute) E55.9 - Assessment Assessment: as per psych monitor behavior health will monitor Nutritional Asmnt/Malnutr-PDOC - Dietary Evaluation Malnutrition Findings (Please click <Entered> for more info): Nutritional Asmnt/Malnutrition Start: 05/22/18 16: 01 Text: Status: Complete Freq: Protocol: Document 05/22/18 16:01 KENTON (Rec: 05/22/18 16:06 KENTON [email or web address]) Nutritional Asmnt/Malnutrition Patient General Information Nutritional Screening Moderate Risk Diagnosis psychosis Pertinent Medical Hx/Surgical Hx parkinson, vit D deficiency, GERD, hyperlipidemia, CVA Subjective Information Pt seen eating lunch in his room at time of visit. per EMR, PO intake 75-100% of meals. Current Diet Order/ Nutrition Support MANUEL Pertinent Medications vit D3, volace, pepcid, senna Pertinent Labs 05/18 Cl 108, glucose 99 Nutritional Hx/Data Height 1.78 m Height (Calculated Centimeters) 177.8 Current Weight (lbs) 83.915 kg Weight (Calculated Kilograms) 83.9 Weight (Calculated Grams) 44805.6 [place] Body Weight 166 Body Mass Index (BMI) 26.5 Weight Status Overweight GI Symptoms GI Symptoms None Last BM 05/19 Difficult in: None Skin Integrity/Comment: intact Current %PO Good (75-100%) Estimated Nutritional Goals BEE in Kcals: Using Current wt Calories/Kcals/Kg 23-27 Kcals Calculated 6359-6709 Protein: Using Current wt Protein g/k Protein Calculated 84 Fluid: ml 1932-2268ml (1ml/kcal) Nutritional Problem No current Nutrition Prob Problem N/A Malnutrition Alert Is there a minimum of two criteria No selected? Query Text:Check all the applicable criteria. A minimum of two criteria are recommended for diagnosis of either severe or non-severe malnutrition. Malnutrition Related to Morbid Obesity Malnutrition related to morbid obesity No Intervention/Recommendation Comments 1. Continue with MANUEL diet as ordered. 2. Monitor PO intake, wt, labs and skin integrity 3. F/U as low risk in 7 days, 10 Expected Outcomes/Goals Expected Outcomes/Goals 1. PO intake to meet at least 75% of nutritional needs. 2. Wt stability, skin to remain intact, labs to approach WNL.
--- NOTE | 2018-05-24 19:45 | Progress Notes ---
DATE: 05/24/2018 SUBJECTIVE: Staff was spoken to. The patient is interviewed. Mood is noted to be irritable. Affect is constricted. The patient is impulsive, but could be redirectable at this time. No side effects to the medications are noted. Coping skills are noted to be still limited. The patient has been taking his clothes off and we have been trying to redirect him. No side effects to the medications are noted at this time. In view of his impulsivity, it is decided to add a low dose of the Depakote and follow the patient up with the supportive therapy. I encouraged the patient to verbalize the concerns rather than to act out. ASSESSMENT: The patient is still getting easily irritable and impulsive. PLAN: Hence, we have decided to add the Depakote 125 mg for the mood swings and continue the patient with the supportive therapy and closely monitor the patient's behavior. JOB# [id number]
[2018-05-25] MEDS: Multivitamin w/ Minerals Tab PO SCH (09:27)
--- NOTE | 2018-05-26 04:40 | Progress Notes ---
DATE: 05/25/2018 Staff was spoken to. The patient is interviewed. Mood is noted to be irritable. Affect is constricted. The patient is disrobing. The patient needs to be redirected. Coping skills are noted to be poor at this time. The patient has no insight into his illness. The patient gets easily agitated. No side effects to the medications are noted. ASSESSMENT: The patient is still impulsive. PLAN: To continue the patient with supportive therapy. I encouraged the patient to verbalize the concerns rather than to act out. JOB# [id number]
[2018-05-26] MEDS: Multivitamin w/ Minerals Tab PO SCH (09:04)
--- NOTE | 2018-05-27 00:05 | Progress Notes ---
DATE: 05/26/2018 SUBJECTIVE: Staff was spoken to. The patient is interviewed. Mood is noted to be less irritable. Affect is appropriate. The patient has been still ____, but needs to be redirected. Coping skills are noted to be improving at this time. The patient is currently on 125 mg twice a day of the Depakote and has been able to tolerate the medication. ASSESSMENT: The patient is still impulsive. PLAN: To continue the patient with the supportive therapy, encouraged the patient to verbalize the concerns rather than to act out. JOB# [id number]
--- NOTE | 2018-05-27 03:49 | Progress Notes ---
DATE: 05/26/2018 SUBJECTIVE: The patient was seen in his room, lying in the bed. The patient is asleep, but easily arousable. The patient appears to be irritable and guarded with an impulsive behavior, otherwise the patient appears to be in no acute distress. OBJECTIVE: VITAL SIGNS: Temperature 98.4, heart rate 82, blood pressure , respirations 20, 99% on room air. HEENT: Head is atraumatic and normocephalic. Eyes: Bilateral conjunctivae are clear. Bilateral pupils are equally round and reactive. NECK: Supple. No JVD. CARDIOVASCULAR: S1 and S2, without murmur. PULMONARY: Clear to auscultation. GASTROINTESTINAL: Soft and nontender without guarding. Positive bowel sounds. MUSCULOSKELETAL: No clubbing. No cyanosis noted. ASSESSMENT: 1. Psychosis. 2. Parkinson's disease. 3. Vitamin D deficiency. 4. Gastroesophageal reflux disease. 5. Hyperlipidemia. 6. Insomnia. PLAN: We will keep the patient in inpatient senior mental health unit. We will follow up with a psychiatrist to monitor the patient's condition and behavior. Treatment plans were discussed with the patient's nurse. Treatment plans were discussed with Dr. Bee. JOB# [id number]
[2018-05-27] MEDS: Multivitamin w/ Minerals Tab PO SCH (09:09)
--- NOTE | 2018-05-27 11:45 | General Progress Note ---
Subjective - Review of Systems Events since last encounter: patient awake irritable denies pain Subjective: nad Objective - Results Result Diagrams: 05/18/18 21:20 05/18/18 21:20 Recent Labs: Laboratory Last Values WBC 8.3 Th/cmm (4.8-10.8) 05/18/18 21:20 RBC 5.02 Mil/cmm (4.30-5.70) 05/18/18 21:20 Hgb 14.8 gm/dL (12-16) 05/18/18 21:20 Hct 44.9 % (41.0-60) 05/18/18 21:20 MCV 89.4 fl (80-99) 05/18/18 21:20 MCH 29.4 pg (26.0-30.0) 05/18/18 21:20 MCHC Differential 32.9 pg (28.0-36.0) 05/18/18 21:20 RDW 13.2 % (11.5-20.0) 05/18/18 21:20 Plt Count 243 Th/cmm (150-400) 05/18/18 21:20 MPV 7.9 fl 05/18/18 21:20 Neutrophils % 63.4 % (40.0-80.0) 05/18/18 21:20 Lymphocytes % 26.9 % (20.0-50.0) 05/18/18 21:20 Monocytes % 7.5 % (2.0-10.0) 05/18/18 21:20 Eosinophils % 1.8 % (0.0-5.0) 05/18/18 21:20 Basophils % 0.4 % (0.0-2.0) 05/18/18 21:20 Sodium 139 mEq/L (136-145) 05/18/18 21:20 Potassium 3.9 mEq/L (3.5-5.1) 05/18/18 21:20 Chloride 108 mEq/L (98-107) H 05/18/18 21:20 Carbon Dioxide 22.6 mEq/L (21.0-31.0) 05/18/18 21:20 Anion Gap 12.3 (7.0-16.0) 05/18/18 21:20 BUN 14 mg/dL (7-25) 05/18/18 21:20 Creatinine 0.9 mg/dL (0.7-1.3) 05/18/18 21:20 Est GFR ( Amer) > 60.0 ml/min (>90) 05/18/18 21:20 Est GFR (Non-Af Amer) > 60.0 ml/min 05/18/18 21:20 BUN/Creatinine Ratio 15.6 05/18/18 21:20 Glucose 99 mg/dL (70-105) 05/18/18 21:20 Calcium 9.3 mg/dL (8.6-10.3) 05/18/18 21:20 Total Bilirubin 0.4 mg/dL (0.3-1.0) 05/18/18 21:20 AST 14 U/L (13-39) 05/18/18 21:20 ALT 6 U/L (7-52) L 05/18/18 21:20 Alkaline Phosphatase 140 U/L (34-104) H 05/18/18 21:20 Total Protein 6.8 gm/dL (6.0-8.3) 05/18/18 21:20 Albumin 4.2 gm/dL (4.2-5.5) 05/18/18 21:20 Globulin 2.6 gm/dL 05/18/18 21:20 Albumin/Globulin Ratio 1.6 (1.0-1.8) 05/18/18 21:20 - Physical Exam Vitals and I&O: Vital Signs Temp 98.3 F 05/26/18 14:00 Pulse 87 05/26/18 14:00 Resp 20 05/26/18 14:00 BP 113/72 05/26/18 14:00 Pulse Ox 97 05/26/18 14:00 Intake & Output 05/26/18 05/27/18 05/27/18 18:59 06:59 18:59 Intake Total 1300 Output Total 4 Balance 1296 Intake: Oral 1300 Output: Urine 4 Other: # Bowel Movements 1 Active Medications: Current Medications Acetaminophen (Tylenol) 650 mg PO Q6H PRN PRN Reason: Pain (Mild) Stop: 07/17/18 23:43 Last Admin: 05/26/18 16:11 Dose: 650 mg Amantadine HCl (Symmetrel) 100 mg PO TID KRISTIE Stop: 07/18/18 08:59 Last Admin: 05/27/18 09:10 Dose: 100 mg Artificial Tears (Artificial Tears Ophth Soln) 1 drop EACH EYE DAILY PRN PRN Reason: Dry Eye Stop: 07/18/18 00:21 Carbidopa/Levodopa (Sinemet 25mg-100 Mg) 1 tab PO TID [facility] Stop: 07/18/18 08:59 Last Admin: 05/27/18 09:09 Dose: 1 tab Cholecalciferol (Vitamin D3) 1,000 iu PO DAILY [facility] Stop: 07/18/18 08:59 Last Admin: 05/27/18 09:10 Dose: 1,000 iu Divalproex Sodium (Depakote Dr) 125 mg PO Q12HR [facility]; Protocol Stop: 07/23/18 20:59 Last Admin: 05/27/18 09:07 Dose: 125 mg Docusate Sodium (Colace) 100 mg PO BID [facility] Stop: 07/18/18 08:59 Last Admin: 05/27/18 09:09 Dose: 100 mg Famotidine (Pepcid) 20 mg PO AC [facility] Stop: 07/18/18 07:29 Last Admin: 05/27/18 06:45 Dose: 20 mg Magnesium Hydroxide (Milk Of Magnesia) 30 ml PO DAILY PRN PRN Reason: Constipation Stop: 07/17/18 23:43 Senna (Senna) 8.6 mg PO BID [facility] Stop: 07/18/18 08:59 Last Admin: 05/27/18 09:10 Dose: 8.6 mg Simvastatin (Zocor) 20 mg PO DAILY [facility]; Protocol Stop: 07/18/18 08:59 Last Admin: 05/27/18 09:10 Dose: 20 mg Tolterodine Tartrate (Detrol) 1 mg PO BID [facility] Stop: 07/18/18 08:59 Last Admin: 05/27/18 09:12 Dose: 1 mg Trazodone HCl (Desyrel) 50 mg PO HS [facility]; Protocol Stop: 07/18/18 20:59 Last Admin: 05/26/18 21:23 Dose: 50 mg General: No acute distress HEENT: Atraumatic Neck: Supple Cardiovascular: Regular rate, Normal S1, Normal S2 Lungs: Clear to auscultation Abdomen: Bowel sounds Assessment/Plan - Problem List Patient Problems: All Active Problems GERD (gastroesophageal reflux disease) (Acute) K21.9 Hyperlipidemia (Acute) E78.5 Insomnia (Acute) G47.00 Parkinson disease (Acute) G20 Psychosis (Acute) F29 Vitamin D deficiency (Acute) E55.9 - Assessment Assessment: as per psych monitor behavior health will monitor - Plan Plan: as per psych will monitor Nutritional Asmnt/Malnutr-PDOC - Dietary Evaluation Malnutrition Findings (Please click <Entered> for more info): Nutritional Asmnt/Malnutrition Start: 05/22/18 16: 01 Text: Status: Complete Freq: Protocol: Document 05/22/18 16:01 [facility] (Rec: 05/22/18 16:06 [email or web address]) Nutritional Asmnt/Malnutrition Patient General Information Nutritional Screening Moderate Risk Diagnosis psychosis Pertinent Medical Hx/Surgical Hx parkinson, vit D deficiency, GERD, hyperlipidemia, CVA Subjective Information Pt seen eating lunch in his room at time of visit. per EMR, PO intake 75-100% of meals. Current Diet Order/ Nutrition Support MANUEL Pertinent Medications vit D3, volace, pepcid, senna Pertinent Labs 05/18 Cl 108, glucose 99 Nutritional Hx/Data Height 1.78 m Height (Calculated Centimeters) 177.8 Current Weight (lbs) 83.915 kg Weight (Calculated Kilograms) 83.9 Weight (Calculated Grams) 96145.6 [place] Body Weight 166 Body Mass Index (BMI) 26.5 Weight Status Overweight GI Symptoms GI Symptoms None Last BM 05/19 Difficult in: None Skin Integrity/Comment: intact Current %PO Good (75-100%) Estimated Nutritional Goals BEE in Kcals: Using Current wt Calories/Kcals/Kg 23-27 Kcals Calculated 9261-7217 Protein: Using Current wt Protein g/k Protein Calculated 84 Fluid: ml 1932-2268ml (1ml/kcal) Nutritional Problem No current Nutrition Prob Problem N/A Malnutrition Alert Is there a minimum of two criteria No selected? Query Text:Check all the applicable criteria. A minimum of two criteria are recommended for diagnosis of either severe or non-severe malnutrition. Malnutrition Related to Morbid Obesity Malnutrition related to morbid obesity No Intervention/Recommendation Comments 1. Continue with MANUEL diet as ordered. 2. Monitor PO intake, wt, labs and skin integrity 3. F/U as low risk in 7 days, 05/29 Expected Outcomes/Goals Expected Outcomes/Goals 1. PO intake to meet at least 75% of nutritional needs. 2. Wt stability, skin to remain intact, labs to approach WNL.
--- NOTE | 2018-05-27 23:15 | Progress Notes ---
DATE: 05/27/2018 SUBJECTIVE: Staff was spoken to. The patient is interviewed. Mood is noted to be irritable. Affect is constricted. The patient has been getting easily irritable and angry. The patient's coping skills are noted to be very poor. The patient has been getting easily frustrated. The patient needs to be redirected. No side effects to the medications are noted. The patient is currently on the trazodone 50 mg at bedtime and the patient is also getting the valproic acid 125 mg twice a day. The patient has been able to tolerate the medications. No major behavioral problems are reported today. ASSESSMENT: The patient is stabilizing. PLAN: To continue the patient with the current medications and followup. JOB# [id number]
[2018-05-28] MEDS: Multivitamin w/ Minerals Tab PO SCH (09:31)
--- NOTE | 2018-05-28 14:44 | General Progress Note ---
Subjective - Review of Systems Events since last encounter: patient still irritable in no acute distress no fever Subjective: nad Objective - Results Result Diagrams: 05/18/18 21:20 05/18/18 21:20 Recent Labs: Laboratory Last Values WBC 8.3 Th/cmm (4.8-10.8) 05/18/18 21:20 RBC 5.02 Mil/cmm (4.30-5.70) 05/18/18 21:20 Hgb 14.8 gm/dL (12-16) 05/18/18 21:20 Hct 44.9 % (41.0-60) 05/18/18 21:20 MCV 89.4 fl (80-99) 05/18/18 21:20 MCH 29.4 pg (26.0-30.0) 05/18/18 21:20 MCHC Differential 32.9 pg (28.0-36.0) 05/18/18 21:20 RDW 13.2 % (11.5-20.0) 05/18/18 21:20 Plt Count 243 Th/cmm (150-400) 05/18/18 21:20 MPV 7.9 fl 05/18/18 21:20 Neutrophils % 63.4 % (40.0-80.0) 05/18/18 21:20 Lymphocytes % 26.9 % (20.0-50.0) 05/18/18 21:20 Monocytes % 7.5 % (2.0-10.0) 05/18/18 21:20 Eosinophils % 1.8 % (0.0-5.0) 05/18/18 21:20 Basophils % 0.4 % (0.0-2.0) 05/18/18 21:20 Sodium 139 mEq/L (136-145) 05/18/18 21:20 Potassium 3.9 mEq/L (3.5-5.1) 05/18/18 21:20 Chloride 108 mEq/L (98-107) H 05/18/18 21:20 Carbon Dioxide 22.6 mEq/L (21.0-31.0) 05/18/18 21:20 Anion Gap 12.3 (7.0-16.0) 05/18/18 21:20 BUN 14 mg/dL (7-25) 05/18/18 21:20 Creatinine 0.9 mg/dL (0.7-1.3) 05/18/18 21:20 Est GFR ( Amer) > 60.0 ml/min (>90) 05/18/18 21:20 Est GFR (Non-Af Amer) > 60.0 ml/min 05/18/18 21:20 BUN/Creatinine Ratio 15.6 05/18/18 21:20 Glucose 99 mg/dL (70-105) 05/18/18 21:20 Calcium 9.3 mg/dL (8.6-10.3) 05/18/18 21:20 Total Bilirubin 0.4 mg/dL (0.3-1.0) 05/18/18 21:20 AST 14 U/L (13-39) 05/18/18 21:20 ALT 6 U/L (7-52) L 05/18/18 21:20 Alkaline Phosphatase 140 U/L (34-104) H 05/18/18 21:20 Total Protein 6.8 gm/dL (6.0-8.3) 05/18/18 21:20 Albumin 4.2 gm/dL (4.2-5.5) 05/18/18 21:20 Globulin 2.6 gm/dL 05/18/18 21:20 Albumin/Globulin Ratio 1.6 (1.0-1.8) 05/18/18 21:20 - Physical Exam Vitals and I&O: Vital Signs Temp 97.7 F 05/28/18 14:00 Pulse 77 05/28/18 14:00 Resp 18 05/28/18 14:00 BP 115/79 05/28/18 14:00 Pulse Ox 98 05/28/18 14:00 Intake & Output 05/27/18 05/28/18 05/28/18 18:59 06:59 18:59 Intake Total 240 Balance 240 Intake: Oral 240 Other: # Voids 2 Active Medications: Current Medications Acetaminophen (Tylenol) 650 mg PO Q6H PRN PRN Reason: Pain (Mild) Stop: 07/17/18 23:43 Last Admin: 05/26/18 16:11 Dose: 650 mg Amantadine HCl (Symmetrel) 100 mg PO TID KRISTIE Stop: 07/18/18 08:59 Last Admin: 05/28/18 09:31 Dose: 100 mg Artificial Tears (Artificial Tears Ophth Soln) 1 drop EACH EYE DAILY PRN PRN Reason: Dry Eye Stop: 07/18/18 00:21 Carbidopa/Levodopa (Sinemet 25mg-100 Mg) 1 tab PO TID [facility] Stop: 07/18/18 08:59 Last Admin: 05/28/18 09:31 Dose: 1 tab Cholecalciferol (Vitamin D3) 1,000 iu PO DAILY [facility] Stop: 07/18/18 08:59 Last Admin: 05/28/18 09:31 Dose: 1,000 iu Divalproex Sodium (Depakote Dr) 125 mg PO Q12HR [facility]; Protocol Stop: 07/23/18 20:59 Last Admin: 05/28/18 09:31 Dose: 125 mg Docusate Sodium (Colace) 100 mg PO BID [facility] Stop: 07/18/18 08:59 Last Admin: 05/28/18 09:32 Dose: 100 mg Famotidine (Pepcid) 20 mg PO AC [facility] Stop: 07/18/18 07:29 Last Admin: 05/28/18 06:52 Dose: 20 mg Magnesium Hydroxide (Milk Of Magnesia) 30 ml PO DAILY PRN PRN Reason: Constipation Stop: 07/17/18 23:43 Senna (Senna) 8.6 mg PO BID [facility] Stop: 07/18/18 08:59 Last Admin: 05/28/18 09:31 Dose: 8.6 mg Simvastatin (Zocor) 20 mg PO DAILY [facility]; Protocol Stop: 07/18/18 08:59 Last Admin: 05/28/18 09:31 Dose: 20 mg Tolterodine Tartrate (Detrol) 1 mg PO BID [facility] Stop: 07/18/18 08:59 Last Admin: 05/28/18 09:31 Dose: 1 mg Trazodone HCl (Desyrel) 50 mg PO HS [facility]; Protocol Stop: 07/18/18 20:59 Last Admin: 05/27/18 21:08 Dose: 50 mg General: No acute distress HEENT: Atraumatic Neck: Supple Cardiovascular: Regular rate, Normal S1, Normal S2 Lungs: Clear to auscultation Abdomen: Bowel sounds Assessment/Plan - Problem List Patient Problems: All Active Problems GERD (gastroesophageal reflux disease) (Acute) K21.9 Hyperlipidemia (Acute) E78.5 Insomnia (Acute) G47.00 Parkinson disease (Acute) G20 Psychosis (Acute) F29 Vitamin D deficiency (Acute) E55.9 - Assessment Assessment: as per psych monitor behavior health will monitor - Plan Plan: as per psych will monitor Nutritional Asmnt/Malnutr-PDOC - Dietary Evaluation Malnutrition Findings (Please click <Entered> for more info): Nutritional Asmnt/Malnutrition Start: 05/22/18 16: 01 Text: Status: Complete Freq: Protocol: Document 05/22/18 16:01 [facility] (Rec: 05/22/18 16:06 [email or web address]) Nutritional Asmnt/Malnutrition Patient General Information Nutritional Screening Moderate Risk Diagnosis psychosis Pertinent Medical Hx/Surgical Hx parkinson, vit D deficiency, GERD, hyperlipidemia, CVA Subjective Information Pt seen eating lunch in his room at time of visit. per EMR, PO intake 75-100% of meals. Current Diet Order/ Nutrition Support MANUEL Pertinent Medications vit D3, volace, pepcid, senna Pertinent Labs 05/18 Cl 108, glucose 99 Nutritional Hx/Data Height 1.78 m Height (Calculated Centimeters) 177.8 Current Weight (lbs) 83.915 kg Weight (Calculated Kilograms) 83.9 Weight (Calculated Grams) 97131.6 [place] Body Weight 166 Body Mass Index (BMI) 26.5 Weight Status Overweight GI Symptoms GI Symptoms None Last BM 05/19 Difficult in: None Skin Integrity/Comment: intact Current %PO Good (75-100%) Estimated Nutritional Goals BEE in Kcals: Using Current wt Calories/Kcals/Kg 23-27 Kcals Calculated 2065-6660 Protein: Using Current wt Protein g/k Protein Calculated 84 Fluid: ml 1932-2268ml (1ml/kcal) Nutritional Problem No current Nutrition Prob Problem N/A Malnutrition Alert Is there a minimum of two criteria No selected? Query Text:Check all the applicable criteria. A minimum of two criteria are recommended for diagnosis of either severe or non-severe malnutrition. Malnutrition Related to Morbid Obesity Malnutrition related to morbid obesity No Intervention/Recommendation Comments 1. Continue with MANUEL diet as ordered. 2. Monitor PO intake, wt, labs and skin integrity 3. F/U as low risk in 7 days, 05/29 Expected Outcomes/Goals Expected Outcomes/Goals 1. PO intake to meet at least 75% of nutritional needs. 2. Wt stability, skin to remain intact, labs to approach WNL.
--- NOTE | 2018-05-29 00:19 | Progress Notes ---
DATE: 05/28/2018 PSYCHIATRIC PROGRESS NOTE Staff was spoken to. The patient is interviewed. Mood is noted to be anxious. Affect is appropriate. The patient is not suicidal or homicidal. Coping skills are noted to be fair. No aggressive behavior is noted today. The patient has been able to verbalize the concerns rather than to act out. ASSESSMENT: The patient is stabilizing. PLAN: To continue the patient with supportive therapy and discharge the patient for followup on an outpatient basis. JOB# [id number]
== END 2018-05-28 14:30 | DRG 885 ==
LOC: ER 19:51 → GERO2 22:41
PROVIDERS: ADMIT Psychiatry & Neurology Psychiatry; ATTEND Psychiatry & Neurology Psychiatry
DX: F29 Unspecified psychosis not due to a substance or known physiological condition (principal); F32.9 Major depressive disorder, single episode, unspecified; F63.9 Impulse disorder, unspecified; G20 Parkinson's disease; E55.9 Vitamin D deficiency, unspecified; K21.9 Gastro-esophageal reflux disease without esophagitis; E78.5 Hyperlipidemia, unspecified; G47.00 Insomnia, unspecified; I69.321 Dysphasia following cerebral infarction
CPT/HCPCS: 36415-UA; 71045-TC; 80053-TC; 85025-TC; 93005; Z7610